=== PATIENT | male | born 1965 | race Caucasian/White ===

== ENCOUNTER 2017-01-18 16:53 | Observation (INO) | payer BC ==
[~2017-01-18] VITALS: Ht 172.7 cm; Wt 92.6 kg
[~2017-01-18 16:53] MED LIST: ASPIRIN81 M2 PO; BENADRYL25 MG PO; FERROUS SULFAT325 MG PO; FISH OIL 1,2001 EAC5 PO; LOSARTAN-HCTZ1 EAC2 PO; MELOXICAM15 MG PO; NORVASC10 MG PO; OMEPRAZOLE40 M1 PO; OXYCODONE HCL5 MG PO; SENNA PLUS TAB1 EACH PO; TRAMADOL HCL50 MG PO; VITAMIN D31000 UNIT PO; XARELTO10 MG PO
[2017-01-18] MEDS ORDERED: NASONEX17 GM BOTH NARES (17:10)
[2017-01-18 18:56] LABS: HEMATOCRIT 44.1 % (38.0-50.0); MCH 30.2 PG (29.0-34.0); MCHC 35.6 G/DL (30.0-36.0); MCV 84.8 FL (86-99); MEAN PLAT.VOLUME 10.5 uM^3 (9.0-12.4); PLATELET COUNT 230 K/uL (156-360); WHITE BLOOD COUNT 8.2 K/uL (4.1-10.2)
[2017-01-18 19:05] LABS: CHLORIDE 105 mEq/L (99-109); POTASSIUM 3.9 mEq/L (3.7-5.4); SODIUM 137 mEq/L (136-147)
[2017-01-18 19:07] LABS: GLUCOSE 194 mg/dL (70-99)
[2017-01-18 19:08] LABS: ANION GAP 7 MEQ/L (2-14)
[2017-01-18 19:11] LABS: GFR ESTIMATE (CALCULATED) > 59 mL/min/; UREA NITROGEN (BUN) 10 mg/dL (9-23)
[2017-01-18 19:16] LABS: TROP-I INTERPRETATION NEGATIVE; TROPONIN-I < 0.01 ng/mL (0.0-0.30)
[2017-01-18] MEDS ORDERED: AMOXICILLIN500 MG PO (20:57)
[2017-01-18] MEDS ORDERED: CETIRIZINE HCL10 M2 PO (21:00)
[2017-01-18] MEDS ORDERED: MOMETASONE FURO17 GM BOTH NARES (21:04)
[2017-01-18] MEDS ORDERED: AMLODIPINE BESY10 MG PO (21:04)
[2017-01-18] MEDS ORDERED: ASPIR-LOW81 MG PO (21:04)
[2017-01-18] MEDS ORDERED: OMEGA-3 ACID ETH1 GM PO (21:04)
[2017-01-18 22:47] VITALS: BP 142/84
[2017-01-18 22:55] LABS: HDL CHOLESTEROL 42 MG/DL (Desirable>=40); LDL CHOLESTEROL 102 mg/dL (Desirable<100); NON-HDL CHOLESTEROL 129 mg/dL (Desirable<160); SAMPLE HEMOLYSIS CHECK 0; SAMPLE ICTERIC CHECK 0; SAMPLE LIPEMIA CHECK 0; TOTAL CHOLESTEROL 171 mg/dL (Desirable<200); TRIGLYCERIDES 134 MG/DL (Normal: <150)
[2017-01-18 23:42] LABS: MCH 30.1 PG (29.0-34.0); MCHC 35.7 G/DL (30.0-36.0); MCV 84.2 FL (86-99); MEAN PLAT.VOLUME 10.6 uM^3 (9.0-12.4); PLATELET COUNT 223 K/uL (156-360); RBC DIS.WIDTH-CV 12.9 % (11.8-14.6); RBC DIS.WIDTH-SD 39.6 % (39-53); RED BLOOD COUNT 4.99 M/uL (4.00-5.50); WHITE BLOOD COUNT 7.3 K/uL (4.1-10.2)
[2017-01-19 04:22] VITALS: BP 124/80
[2017-01-19 07:35] LABS: Estimated Average Glucose 143 mg/dL (70-123); HEMOGLOBIN A1c (GLYCOHEMOGLOB) 6.6 % HGB (Below 5.7)
[2017-01-19 08:43] LABS: ADD MIUA? NO; BILIRUBIN NEGATIVE; BLOOD NEGATIVE; COLOR YELLOW ((YELLOW)); GLUCOSE (STRIP) NEGATIVE; KETONES NEGATIVE; LEUKOCYTES NEGATIVE; NITRITE NEGATIVE; PROTEIN (STRIP) NEGATIVE; SPECIFIC GRAVITY 1.021 (1.000-1.030); UCUL ADDED? NO; UROBILINOGEN 0.2 MG/DL (0.2-1.0)
[2017-01-19 08:46] VITALS: BP 128/86
[2017-01-19 12:36] VITALS: BP 129/84
[2017-01-19 19:30] VITALS: BP 139/83
[2017-01-19 23:39] VITALS: BP 124/81
[2017-01-20] VITALS (8 sets, daily range): BP systolic 89–131; BP diastolic 64–95
[2017-01-20 06:15] LABS: POINT-OF-CARE METER ID UU13113831
[2017-01-20 06:16] LABS: BASE EXCESS -24.6 mEq/L (-3 to +3); METHEMOGLOBIN 1.3 % (0-1.5); PCO2 32 mm Hg (35-45); PO2 118 mm Hg (80-100); pH 6.95 (7.35-7.45)
[2017-01-20 06:17] LABS: COMMENTS - BLOOD GASES C+; DEVICE NC; O2 FLOW 2 L/MIN; SITE LR; TOTAL RESP RATE 16 resp/min
[2017-01-20 06:38] LABS: PROTHROMBIN TIME 11.6 SEC (10.2-12.9)
[2017-01-20 06:54] LABS: BASOPHIL COUNT 0.1 K/uL (0-0.1); EOSINOPHIL (%) 6.2 % (0-5); HEMATOCRIT 55.2 % (38.0-50.0); IMMATURE GRANULOCYTE (%) 0.6 % (0.0-0.7); IMMATURE GRANULOCYTE COUNT 0.1 K/uL; INSTRUMENT ABS NEUTROPHIL CT 7.3 K/uL; LYMPHOCYTE COUNT 5.4 K/uL (1.0-2.8); MCH 29.7 PG (29.0-34.0); MONOCYTE (%) 13.7 % (3-12); MONOCYTE COUNT 2.2 K/uL (0-0.8); NEUTROPHIL (%) 45.6 % (45-76); NEUTROPHIL COUNT 7.3 K/uL (1.8-6.4); RBC DIS.WIDTH-CV 12.9 % (11.8-14.6); RBC DIS.WIDTH-SD 42.9 % (39-53)
[2017-01-20 06:55] LABS: TROP-I INTERPRETATION NEGATIVE; TROPONIN-I 0.02 ng/mL (0.0-0.30)
[2017-01-20 07:06] LABS: ABS NEUTROPHIL COUNT 8.8; ANISOCYTOSIS 1+; ATYPICAL LYMPHOCYTE 14.5 %; BAND NEUTROPHILS 0.9 % (0-8.0); EOSINOPHIL ABS CT 1.1; EOSINOPHILS 6.8 % (0-5.0); LYMPHOCYTES 12.8 % (15.0-45.0); MEAN PLAT.VOLUME 10.8 uM^3 (9.0-12.4); MICROCYTOSIS 1+; PLAT.SUFFICIENCY ADEQUATE; SEG.NEUTROPHILS 53.9 % (46.0-76.0)
[2017-01-20 07:07] LABS: ALKALINE PHOSPHATASE 94 IU/L (3-129); ANION GAP 31 MEQ/L (2-14); CHLORIDE 100 MEQ/L (99-109); DIRECT BILIRUBIN 0.2 mg/dL (0.0-0.3); GLUCOSE 266 mg/dL (70-99); POTASSIUM 3.4 MEQ/L (3.7-5.4); SAMPLE HEMOLYSIS CHECK 0; SAMPLE ICTERIC CHECK 0; SAMPLE LIPEMIA CHECK 0; SODIUM 139 MEQ/L (136-147); TOTAL BILIRUBIN 1.3 MG/DL (0.0-1.0); UREA NITROGEN (BUN) 15 mg/dL (9-23)
[2017-01-20 07:09] LABS: GFR ESTIMATE (CALCULATED) > 59 mL/min/
[2017-01-20 07:21] LABS: PLATELET COUNT 323 K/uL (156-360); RED BLOOD COUNT 6.13 M/uL (4.00-5.50)
[2017-01-20 08:25] LABS: METH RESISTANT S AUREUS PCR POSITIVE (NEGATIVE); PROBE CHECK PASS
[2017-01-20 10:05] LABS: EOSINOPHIL (%) 0.2 % (0-5); HEMATOCRIT 47.2 % (38.0-50.0); IMMATURE GRANULOCYTE (%) 0.6 % (0.0-0.7); IMMATURE GRANULOCYTE COUNT 0.1 K/uL; INSTRUMENT ABS NEUTROPHIL CT 15.5 K/uL; LYMPHOCYTE COUNT 0.9 K/uL (1.0-2.8); MCH 30.2 PG (29.0-34.0); MEAN PLAT.VOLUME 10.8 uM^3 (9.0-12.4); MONOCYTE (%) 5.5 % (3-12); NEUTROPHIL (%) 88.4 % (45-76); NEUTROPHIL COUNT 15.5 K/uL (1.8-6.4); PLATELET COUNT 244 K/uL (156-360); RBC DIS.WIDTH-CV 12.7 % (11.8-14.6); RBC DIS.WIDTH-SD 38.5 % (39-53); RED BLOOD COUNT 5.62 M/uL (4.00-5.50); WHITE BLOOD COUNT 17.5 K/uL (4.1-10.2)
[2017-01-20 10:24] LABS: ANION GAP 11 MEQ/L (2-14); CHLORIDE 102 MEQ/L (99-109); GFR ESTIMATE (CALCULATED) > 59 mL/min/; GLUCOSE 319 mg/dL (70-99); SAMPLE HEMOLYSIS CHECK 0; SAMPLE ICTERIC CHECK 0; SAMPLE LIPEMIA CHECK 0; SODIUM 136 MEQ/L (136-147); UREA NITROGEN (BUN) 16 mg/dL (9-23)
[2017-01-20 10:28] LABS: POTASSIUM 4.1 MEQ/L (3.7-5.4)
[2017-01-20 10:50] LABS: BASE EXCESS -1.3 mEq/L (-3 to +3); BICARBONATE 22.8 mEq/L (22-26); CARBOXY HGB 1.4 % (0-5); COMMENTS - BLOOD GASES A+C+; DEVICE 980; FI02 40 %; MECHANICAL RATE 12 resp/min; METHEMOGLOBIN 1.9 % (0-1.5); MODE A/C; PCO2 36 mm Hg (35-45); PO2 123 mm Hg (80-100); SITE LR; TIDAL VOLUME 700 ML; TOTAL RESP RATE 13 resp/min; pH 7.41 (7.35-7.45)
[2017-01-20 10:51] LABS: PEEP 5 CM/H20
== END 2017-01-20 16:01 | disposition short-term general hospital (02) ==
LOC: EME 16:53 → EDOF 21:14 → ENRESERV 21:34 → 5WEST 22:40 → ENRESERV 01-20 06:13 → 4WEST 01-20 06:32
PROVIDERS: Emergency Medicine; Hospitalist; Internal Medicine Critical Care Medicine; Specialist
DX: R56.9 Unspecified convulsions (principal); D18.09 Hemangioma of other sites; R41.82 Altered mental status, unspecified; I10 Essential (primary) hypertension; H53.8 Other visual disturbances; R20.0 Anesthesia of skin; Z91.81 History of falling; R73.9 Hyperglycemia, unspecified; E86.1 Hypovolemia; E86.0 Dehydration; E87.2 Acidosis; E87.6 Hypokalemia; D75.1 Secondary polycythemia; Z96.642 Presence of left artificial hip joint; Z82.49 Family history of ischemic heart disease and other diseases of the circulatory system; Z83.3 Family history of diabetes mellitus
CPT/HCPCS: 36600; 70450; 70553; 71010; 80048; 80048 91; 80061; 80076; 81003; 82140; 82803; 82948; 83036; 83605; 84484; 85025; 85025 91; 85027; 85610; 85730; 87070; 87205; 87641; 93005; 94002; 94799; 95819; 99281; 99285; G0378; J1650; J1953; J2060; J2250; J2405; J2704; J7050; J7120